=== PATIENT | male | born 1985 | race Caucasian/White ===

== ENCOUNTER 2017-05-16 20:54 | Emergency (ER) | payer SELFPAY ==
[2017-05-16 21:11] VITALS: RESP 16; TEMP 98.8
--- NOTE | 2017-05-16 22:04 | EDPHY ---
H & P Stated Complaint: Fell snowboarding - poss broken elbow. Time Seen by Provider: 05/16/17 21:06 HPI/ROS: Chief complaint: Right elbow pain History of present illness: This is a 31-year-old male who presents to the emergency department for right elbow pain. Earlier today he was snowboarding when he fell onto his right elbow. Since then he has had pain and swelling. Difficulty moving it. He does state this jolted shoulder and shoulder sore as well. He denies open wounds. He denies abnormal coolness or paresthesias in the right arm. He denies trauma to the rest of the body. 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 - Social History Smoking Status: Heavy smoker - Physical Exam Exam: General: Alert, nontoxic Skin: No open wounds to the right upper extremity. Bruising to the right elbow. Musculoskeletal: Diffuse tenderness to the right elbow, the discomfort moving it. He is moving the right shoulder, right wrist and digits of the right hand well. Vascular: Capillary refill brisk in the right hand. Radial pulses 2+. Neurologic: Sensation intact throughout the right arm. Constitutional: Initial Vital Signs Temperature (C) 37.1 C 05/16/17 21:05 Heart Rate 116 H 05/16/17 21:05 Respiratory Rate 16 05/16/17 21:05 Blood Pressure 123/94 H 05/16/17 21:05 O2 Sat (%) 94 05/16/17 21:05 O2 Delivery Mode Room Air Allergies/Adverse Reactions: No Known Allergies Allergy (Unverified 05/16/17 21:11) Home Medications: Medication Instructions Recorded NK [No Known Home Meds] 05/16/17 Medical Decision Making - Diagnostics Imaging Results: Imaging Impressions Elbow X-Ray 05/16/17 21:16 Impression: Normal. No acute fracture or effusion. Shoulder X-Ray 05/16/17 21:16 Impression: Negative. No acute fracture or AC separation. Imaging: I viewed and interpreted images myself Procedures: Procedure: Splint placement. A sling was applied. After application of the splint I returned and re- examined the patient. The splint was adequately immobilizing the joint and distal to the splint the patient's circulation and sensation was intact. ED Course/Re-evaluation: Patient seen under the supervision of my secondary supervising physician Dr. Juventino Ruiz. Patient presents for right elbow and shoulder injury. The right upper extremity is neurovascularly intact. X-rays are negative. He does have significant pain to palpation and movement of the right elbow. Therefore he is placed in a sling. Home care is discussed. He is referred to Orthopedics for recheck. Return precautions are given. Differential Diagnosis: Included but not limited to contusion, sprain or strain, bony fracture, joint dislocation - Data Points Medications Given: Discontinued Medications Acetaminophen (Tylenol) 1,000 mg PO EDNOW ONE Stop: 05/16/17 22:16 Last Admin: 05/16/17 22:31 Dose: 1,000 mg Ibuprofen (Motrin) 600 mg PO EDNOW ONE Stop: 05/16/17 22:16 Last Admin: 05/16/17 22:30 Dose: 600 mg Departure - Departure Disposition: Home, Routine, Self-Care Clinical Impression: Traumatic ecchymosis of right elbow Qualifiers: Encounter type: initial encounter Qualified Code(s): S50.01XA - Contusion of right elbow, initial encounter Condition: Good Instructions: Elbow Sprain (ED) Additional Instructions: Follow-up with orthopedics for recheck Use ibuprofen 600 mg every 6 hr for the next 2-3 days for pain control In addition You can take Tylenol 650 mg every 6 hr for additional pain control If symptoms worsen or new symptoms develop return to the emergency room for recheck Referrals: NONE *PRIMARY CARE P,. [Primary Care Provider] - As per Instructions Po Garcia MD [Medical Doctor] - As per Instructions
[2017-05-16] MEDS ORDERED: ACETAMINOPHEN 500 MG TAB PO ONE (22:15)
[2017-05-16] MEDS ORDERED: IBUPROFEN 600 MG TAB PO ONE (22:15)
[2017-05-16 22:45] VITALS: BP 125/89; PULSE 100; O2SAT 95
== END 2017-05-16 23:04 | disposition home or self-care (01) ==
DX: S50.01XA Contusion of right elbow, initial encounter (principal); F17.200 Nicotine dependence, unspecified, uncomplicated; V00.311A Fall from snowboard, initial encounter; Y99.8 Other external cause status; Y93.23 Activity, snow (alpine) (downhill) skiing, snowboarding, sledding, tobogganing and snow tubing
CPT/HCPCS: A4565